=== PATIENT | male | born 1980 | race Caucasian/White ===

== ENCOUNTER 2017-09-22 10:10 | Emergency (ER) | payer OTHER ==
[~2017-09-22] VITALS: Ht 182.9 cm; Wt 123.0 kg
[2017-09-22 10:21] VITALS: BP 159/87; PULSE 97; RESP 18; TEMP 98.8; O2SAT 98
[2017-09-22] MEDS ORDERED: CLIN300C5 PO (11:35)
[2017-09-22] MEDS ORDERED: IBUP1TAB7 PO (11:36)
--- NOTE | 2017-09-22 11:36 | PD ---
HPI Chief Complaint: Oral / Dental Pain or Problem Time Seen by Provider: 10:32 Travel History International Travel<30 days: No Contact w/Intl Traveler<30days: No Traveled to known affect area: No History of Present Illness HPI 37 -year-old male with left dental pain and facial swelling 3 days. He has a dental appointment scheduled for Monday. He denies fever or chills. Symptom severity is moderate. Aggravated by palpation of the lower jaw and slightly alleviated with OTC Tylenol. He denies difficulty eating or drinking. PFSH Past Medical History Diabetes: Yes (control with diet) Patient Takes Glucophage: No Past Surgical History Surgical History: No Previous Surgery Social History Alcohol Use: No Tobacco Use: No Substance Use: No Allergies-Medications (Allergen,Severity, Reaction): Coded Allergies: No Known Allergies (Verified Allergy, Unknown, 09/22/17) Reported Meds & Prescriptions Reported Meds & Active Scripts Active No Active Prescriptions or Reported Medications Review of Systems Except as stated in HPI: all other systems reviewed are Neg General / Constitutional: No: Fever Eyes: No: Visual changes HENT: No: Headaches Cardiovascular: No: Chest Pain or Discomfort Respiratory: No: Shortness of Breath Gastrointestinal: No: Abdominal Pain Genitourinary: No: Dysuria Physical Exam Narrative GENERAL: Alert and well-appearing male in no distress. SKIN: Warm and dry. HEAD: Normocephalic. Left lower facial swelling which does not extend to the neck. EYES: No injection or drainage. MOUTH: Widespread dental decay. Left lower premolars decayed with surrounding, erythema. No discernible abscess. No swelling of the floor the mouth. Uvula is midline. Airway is patent. NECK: Supple, trachea midline. No JVD or lymphadenopathy. CARDIOVASCULAR: Regular rate and rhythm RESPIRATORY: Breath sounds equal bilaterally. No accessory muscle use. GASTROINTESTINAL: Abdomen soft, non-tender, nondistended. MUSCULOSKELETAL: No cyanosis, or edema. BACK: Nontender without obvious deformity. No CVA tenderness. Data Data Last Documented VS Vital Signs Date Time Temp Pulse Resp B/P (MAP) Pulse Ox O2 Delivery O2 Flow Rate FiO2 09/22/17 10:21 98.8 97 18 159/87 (111) 98 MDM Medical Decision Making Medical Screen Exam Complete: Yes Emergency Medical Condition: Yes Differential Diagnosis Dental abscess, dental caries, periodontal disease Narrative Course 37-year-old male here with dental abscess to the left lower premolar region. His airway is patent. He is nontoxic appearing. Patient will be put on clindamycin and instructed to follow-up with his dentist on Monday. Diagnosis Primary Impression: Dental abscess Referrals: Dentist Additional Instructions: Antibiotics as prescribed. Ibuprofen as needed for pain. Follow-up with her dentist on Monday. Stay well hydrated. Scripts Ibuprofen (Ibuprofen) 800 Mg Tab 800 MG PO Q6HR Y for PAIN, #40 TAB 0 Refills Prov: Jeannine Gomez 09/22/17 Clindamycin (Clindamycin) 300 Mg Cap 300 MG PO Q6H for Infection for 10 Days, #40 CAP 0 Refills Prov: Jeannine Gomez 09/22/17 Disposition: 01 DISCHARGE HOME Condition: Stable Jeannine Gomez Sep 22, 2017 11:36
== END 2017-09-22 11:44 | disposition home or self-care (01) ==
LOC: PHEFT 10:10
DX: K04.7 Periapical abscess without sinus (principal); E11.9 Type 2 diabetes mellitus without complications
CPT/HCPCS: 99283